=== PATIENT | female | born 1970 | race Caucasian/White ===

== ENCOUNTER → 2016-07-07 | Outpatient (CLI) | payer BC ==
--- NOTE | 2016-07-07 14:08 | US ---
EXAMINATION TYPE: US abdomen complete DATE OF EXAM: 07/07/2016 1:51 PM COMPARISON: US in PACS CLINICAL HISTORY: Gen Abd Pain R10.84. Pt states ABD pain EXAM MEASUREMENTS: Liver Length: 18.5 cm Gallbladder Wall: 0.3 cm CBD: 0.6 cm Spleen: 11.8 cm Right Kidney: 10.0 x 3.8 x 4.6 cm Left Kidney: 9.7 x 4.7 x 4.5 cm TECHNOLOGIST IMPRESSION: Pancreas: wnl, tail obscured by overlying bowel gas Liver: Enlarged, heterogeneous, difficult to penetrate/ Cyst left medial lobe=2.2 x 2.0 x 2.0 cm, un changed from previous Gallbladder: Possible small amount of sludge at dependent portion as seen on previous/ Fold at fundu s Evidence for sonographic Chacko's sign: No CBD: wnl Spleen: wnl Right Kidney: wnl Left Kidney: wnl Upper IVC: wnl Abd Aorta: wnl IMPRESSION: 1. Small amount of sludge may be present within the gallbladder. 2. Fatty infiltration liver. A cyst is within the left lobe, stable.
== END | disposition home or self-care (01) ==
LOC: RADUSWWP 13:27
PROVIDERS: ATTEND Internal Medicine Geriatric Medicine
DX: K76.89 Other specified diseases of liver (principal); K76.0 Fatty (change of) liver, not elsewhere classified
CPT/HCPCS: 76700

== ENCOUNTER 2016-07-16 09:10 | Day surgery (SDC) | payer BC ==
[2016-07-13 12:35] VITALS: BMI 30.7
[~2016-07-16 09:10] MED LIST: LACTATED RINGERS 1,000 ML IV SCH
[2016-07-16 09:33] VITALS: TEMP 98.1
[2016-07-16] MEDS ORDERED: ONDANSETRON 4 MG/2 ML VIAL IVP ONE (09:41)
[2016-07-16] MEDS ORDERED: PROPOFOL 10 MG/ML 20 ML VIAL IV ONE (09:56)
--- NOTE | 2016-07-16 10:15 | P.PCN ---
Date of Procedure: 07/16/16 Procedure(s) Performed: Brief history: Patient is a pleasant 45-year-old white female, scheduled for an elective upper endoscopy as well as colonoscopy as a part of evaluation of intermittent dysphagia to solids and change in bowel habits. She also has long-standing history of GERD and has been on Prilosec 20 mg daily for several years. She has been having diarrhea with bowel movements anywhere from 10-12 day which are loose to watery in consistency but no blood or mucus in the stool. Procedure performed: Esophagogastroduodenoscopy with biopsy Colonoscopy with biopsy Preoperative diagnosis: Dysphagia/GERD Change in bowel habits and chronic diarrhea for months duration Anesthesia: MAC Procedure: After informed consent was obtained from the patient was brought into the endoscopy unit and IV conscious sedation was administered by anesthesia under continuous monitoring. Initially upper endoscopy was done. The Olympus GF 160 video endoscope was inserted inserted into the mouth and esophagus intubated without any difficulty and was gradually advanced into the stomach and duodenum and carefully examined. The bulb and second part of the duodenum appeared normal. Biopsies were done from this area to rule out celiac disease. The scope was then withdrawn into the stomach adequately insufflated with air and upon careful examination the antrum had mild gastritis and biopsies were done from this area. The body, cardia and fundus appeared normal. The scope was then withdrawn into the esophagus. The GE junction was located at 40 cm to the incisors. It appeared regular with no erythema erosions or ulcerations. Rest of the esophagus appeared normal. Patient tolerated the procedure well. At this time the patient continued to remain sedation. Initial digital rectal examination was normal. Olympus CF 160 video colonoscope was then inserted into the rectum and gradually advanced to the cecum without any difficulty. Careful examination was performed as the scope was gradually being withdrawn. The prep was excellent. terminal ileum was intubated and 20 cm visualized and appeared normal. The cecum, ascending colon, transverse colon, descending colon , sigmoid colon and rectum appeared normal. random biopsies were done from ascending and descending colon to rule out microscopic/collagenous colitis. Retroflexion was performed in the rectum and no lesions were noted. Patient tolerated the procedure well. Impression: 1. Upper endoscopy revealed mild antral gastritis but no evidence of esophagitis or peptic ulcer disease 2. Colonoscopy revealed normal-appearing colon from rectum to cecum with no evidence of colitis or colorectal neoplasia. Recommendations: Findings of this examination were discussed with the patient as well as[her family. She was advised to follow with the biopsy results. She can have a repeat colonoscopy in 10 years.
[2016-07-16 10:50] VITALS: BP 123/81; PULSE 72; RESP 18
== END 2016-07-16 11:04 | disposition home or self-care (01) ==
LOC: ORWHC2ENDO 09:10
PROVIDERS: ATTEND Internal Medicine Gastroenterology
DX: K21.9 Gastro-esophageal reflux disease without esophagitis (principal); K29.50 Unspecified chronic gastritis without bleeding; F41.9 Anxiety disorder, unspecified; Z79.899 Other long term (current) drug therapy; Z88.0 Allergy status to penicillin; Z88.2 Allergy status to sulfonamides
CPT/HCPCS: 88305; 88342; 45380; 43239; J2405; J2704

== ENCOUNTER → 2017-03-09 | Outpatient (CLI) | payer BC ==
--- NOTE | 2017-03-09 16:05 | BD ---
EXAMINATION TYPE: MG DEXA axial skeleton. DATE OF EXAM: 03/09/2017 COMPARISON: NONE CLINICAL HISTORY: Postmenopausal female. Screening. Height: 5'5 Weight: 200 FRAX RISK QUESTIONS: Alcohol (3 or more units per day): no Family History (Parent hip fracture): no Glucocorticoids (More than 3mos): no (Ex: prednisone, prednisolone, methylprednisolone, dexamethasone, and hydrocortisone). History of Fracture in Adulthood: no Secondary Osteoporosis: 1. Type 1 Diabetes: no 2. Hyperthyroidism: no 3. Menopause before 45: yes 4. Malnutrition: no 5. Chronic liver disease: no Rheumatoid Arthritis: no Current Tobacco Use: no RISK FACTORS HISTORY OF: Family History of Osteoporosis: Active: Diet low in dairy products/other sources of calcium: Postmenopausal woman: MEDICATIONS: Additional Medications: anxiety, Additional History: EXAM MEASUREMENTS: Bone mineral densitometry was performed using the [employer] System. Bone mineral density as measured about the Lumbar spine is: ----- L1-L4(G/cm2): 1.343 T Score Values are as follows: ----- L2: 1.1 ----- L3: 1.6 ----- L4: 1.4 ----- L1-L4:1.4 Bone mineral density about the R hip (g/cm2): 1.137 Bone mineral density about the L hip (g/cm2): 1.149 T Score values are as follows: -----R Neck: 0.7 -----L Neck: 0.8 -----R Total: 0.9 -----L Total: 1.0 IMPRESSION: Normal (Values between +1 and -1 indicate normal bone mass). Consider repeating this study in 5 year s or sooner if there is some new clinical indication. NOTE: T-SCORE=SD OF THE YOUNG ADULT MEAN.
--- NOTE | 2017-03-10 09:09 | MM ---
Reason for exam: screening (asymptomatic). Last mammogram was performed 2 years and 4 months ago. History: Patient is postmenopausal and is nulliparous. Family history of breast cancer in grandmother. Took hormonal contraceptives for 10 years. Physical Findings: A clinical breast exam by your physician is recommended on an annual basis and results should be correlated with mammographic findings. MG Screening Mammo w CAD Bilateral CC and MLO view(s) were taken. Prior study comparison: November 07, 2014, bilateral MG screening mammo w CAD. October 16, 2013, bilateral MG screening mammo w CAD. There are scattered fibroglandular densities. Developing asymmetry anterior upper outer quadrant in the left breast. Focal asymmetry left posterior middle central aspect on MLO view. This finding is changed when compared with previous exams. ASSESSMENT: Incomplete: need additional imaging evaluation, BI-RAD 0 RECOMMENDATION: Special view mammogram of the left breast. If lesion persists on supplemental views, image directed ultrasound is recommended. [facility] will attempt to contact patient to return for supplemental views and ultrasound if indicated.
== END | disposition home or self-care (01) ==
LOC: RADMAMWWP 14:25
PROVIDERS: ATTEND Obstetrics & Gynecology
DX: Z12.31 Encounter for screening mammogram for malignant neoplasm of breast (principal); Z78.0 Asymptomatic menopausal state
CPT/HCPCS: 77080; G0202

== ENCOUNTER → 2017-03-15 | Outpatient (CLI) | payer BC ==
--- NOTE | 2017-03-15 09:50 | MM ---
Reason for exam: additional evaluation requested from abnormal screening. Last mammogram was performed less than 1 month ago. History: Patient is postmenopausal and is nulliparous. Family history of breast cancer in grandmother. Took hormonal contraceptives for 10 years. Physical Findings: Nurse did not find any significant physical abnormalities on exam. MG Work Up Mamm w CAD LT Spot compression CC, spot compression MLO, and ML view(s) were taken of the left breast. Prior study comparison: March 09, 2017, bilateral MG screening mammo w CAD. November 07, 2014, bilateral MG screening mammo w CAD. Area does not completely go away. These results were verbally communicated with the patient and result sheet given to the patient on 03/15/17. ASSESSMENT: Incomplete: need additional imaging evaluation, BI-RAD 0 RECOMMENDATION: Ultrasound of the left breast.
--- NOTE | 2017-03-15 09:54 | USB ---
Reason for exam: additional evaluation requested from abnormal screening. History: Patient is postmenopausal and is nulliparous. Family history of breast cancer in grandmother. Took hormonal contraceptives for 10 years. US Breast Workup Limited LT Left breast ultrasound demonstrates a 0.4 x 0.3 x 0.4cm oval lesion too small to characterize at 1 o'clock, a 0.7 x 0.6 x 0.6cm irregular, hypoechoic, vascular lesion at 2 o'clock, 6cm from nipple, which biopsy advised, believed to correspond to mammographic area, a 0.8 x 0.4 x 0.8cm oblong, lobular, cystic lesion at 4 o'clock and a 0.8 x 0.6 x 0.7cm cluster at 4 o'clock. These results were verbally communicated with the patient and result sheet given to the patient on 03/15/17. ASSESSMENT: Suspicious, BI-RAD 4 RECOMMENDATION: Ultrasound core biopsy of the left breast. Called Dr. Alston with mammographic findings and has scheduled an appointment for the patient for 04/07/17 at 10:[address] Desai. Biopsy scheduled for 03/18/17 at 11:30. PRELIMINARY REPORT CALLED AND FAXED TO DR. DESAI ON 03/15/17.
== END | disposition home or self-care (01) ==
LOC: RADMAMWWP 07:31
PROVIDERS: ATTEND Obstetrics & Gynecology
DX: R92.8 Other abnormal and inconclusive findings on diagnostic imaging of breast (principal); Z80.3 Family history of malignant neoplasm of breast
CPT/HCPCS: 76642; G0206

== ENCOUNTER → 2017-03-18 | Day surgery (SDC) | payer BC ==
[2017-03-18 10:45] VITALS: BMI 33.3
--- NOTE | 2017-03-18 13:06 | USB ---
ULTRASOUND GUIDED CORE BIOPSY LEFT BREAST BIOPSY: CLINICAL HISTORY: Abnormal ultrasound and mammogram FINDINGS: The procedure was explained to the patient. The risks, complications, benefits and alternatives were discussed and any questions were answered. Informed consent was obtained. Patient was placed supin e on the ultrasound table and prepped and draped in the usual sterile fashion. Utilizing a 14 gauge needle, 3 passes were made into the requested lesion. Patient was stable throughout the procedure. Pathology is pending. All elements of maximal barrier and sterile technique were utilized. Surgical clip was placed and the mammogram demonstrated the area of concern to be in the region of the clip. IMPRESSION: 1. Successful ultrasound guided core biopsy left breast. Pathology pending. If the pathology is disc ordant with the radiology than a stereotactic core biopsy or needle localization would be recommended .
--- NOTE | 2017-03-18 13:58 | MM ---
Reason for exam: additional evaluation requested from abnormal screening. Last mammogram was performed less than 1 month ago. History: Patient is postmenopausal and is nulliparous. Family history of breast cancer in grandmother. Took hormonal contraceptives for 10 years. MG Diagnostic Mammo LT Wo CAD CC and ML view(s) were taken of the left breast. Prior study comparison: March 15, 2017, left breast MG work up mamm w CAD LT. March 09, 2017, bilateral MG screening mammo w CAD. ASSESSMENT: Post procedure mammogram for marker placement RECOMMENDATION: Ultrasound of the left breast in 6 months. PENDING PATHOLOGY RESULTS.
[2017-03-18 16:04] VITALS: BP 142/74; PULSE 74; RESP 16; TEMP 98
== END ==
LOC: RADUSWWP 10:27
PROVIDERS: ATTEND Surgery
DX: N60.32 Fibrosclerosis of left breast (principal); N60.22 Fibroadenosis of left breast; R92.8 Other abnormal and inconclusive findings on diagnostic imaging of breast
CPT/HCPCS: 88305; 19083; G0206; A4648; J2001

== ENCOUNTER → 2017-10-07 | Outpatient (CLI) | payer BC ==
--- NOTE | 2017-10-10 09:11 | MM ---
Reason for exam: follow-up at short interval from prior study. Last mammogram was performed 7 months ago. History: Patient is postmenopausal and is nulliparous. Family history of breast cancer in grandmother. Benign US breast needle core LT of the left breast, March 18, 2017. Took hormonal contraceptives for 10 years. Physical Findings: Nurse Summary: 1cm nodule in the left breast at 12 o'clock and 3 o'clock (nurse dw). MG Diagnostic Mammo LT w CAD CC and MLO view(s) were taken of the left breast. Prior study comparison: March 18, 2017, left breast MG diagnostic mammo LT wo CAD. March 15, 2017, left breast MG work up mamm w CAD LT. The breast tissue is heterogeneously dense. This may lower the sensitivity of mammography. There are benign appearing round, oval, circumscribed masses corresponding to sonographic cysts. Left biopsy marker noted. These results were verbally communicated with the patient and result sheet given to the patient on 10/07/17. ASSESSMENT: Benign, BI-RAD 2 RECOMMENDATION: Return to routine screening mammogram schedule for both breasts. Back on schedule for March 2018.
--- NOTE | 2017-10-10 09:13 | USB ---
Reason for exam: follow-up at short interval from prior study. History: Patient is postmenopausal and is nulliparous. Family history of breast cancer in grandmother. Benign US breast needle core LT of the left breast, March 18, 2017. Took hormonal contraceptives for 10 years. US Breast LT Left complete breast ultrasound includes all four quadrants, the retroareolar region and axilla. Finding demonstrates a 0.3 x 0.4 x 0.3cm hypoechoic lesion at 1 o'clock, likely complicated cyst, increased through transmission, 4 x 3 x 4mm on prior, a 0.4 x 0.4 x 0.3cm cystic lesion at 3 o'clock, 4 x 3cm on prior, a 1.0 x 1.1 x 0.5cm oval, vascular lesion at 3 o'clock and a 0.7 x 0.4 x 0.3cm cystic, benign lesion at 5 o'clock. These results were verbally communicated with the patient and result sheet given to the patient on 10/07/17. ASSESSMENT: Benign, BI-RAD 2 RECOMMENDATION: Return to routine screening mammogram schedule for both breasts. Back on schedule for March 2018.
== END | disposition home or self-care (01) ==
LOC: RADMAMWWP 09:23
PROVIDERS: ATTEND Surgery
DX: R92.8 Other abnormal and inconclusive findings on diagnostic imaging of breast (principal)
CPT/HCPCS: 77065

== ENCOUNTER → 2018-07-31 | Outpatient (CLI) | payer BC ==
--- NOTE | 2018-08-02 09:04 | MM ---
Reason for exam: screening (asymptomatic). Last mammogram was performed 10 months ago. History: Patient is postmenopausal and is nulliparous. Family history of breast cancer in grandmother. Benign US breast needle core LT of the left breast, March 18, 2017. Took hormonal contraceptives for 10 years. Physical Findings: A clinical breast exam by your physician is recommended on an annual basis and results should be correlated with mammographic findings. MG 3D Screening Mammo W/Cad Bilateral CC and MLO view(s) were taken. Prior study comparison: October 07, 2017, left breast MG diagnostic mammo LT w CAD. March 18, 2017, left breast MG diagnostic mammo LT wo CAD. The breast tissue is heterogeneously dense. This may lower the sensitivity of mammography. Previous mammotome biopsy in the left breast. There is chronic nodularity in the left breast laterally. No significant changes when compared with prior studies. ASSESSMENT: Benign, BI-RAD 2 RECOMMENDATION: Routine screening mammogram of both breasts in 1 year.
== END | disposition home or self-care (01) ==
LOC: RADMAMWWP 10:28
PROVIDERS: ATTEND Internal Medicine Geriatric Medicine
DX: Z12.31 Encounter for screening mammogram for malignant neoplasm of breast (principal)
CPT/HCPCS: 77063; 77067

== ENCOUNTER → 2018-11-03 | Outpatient (CLI) | payer BC ==
--- NOTE | 2018-11-03 14:30 | US ---
EXAMINATION TYPE: US kidneys/renal and bladder DATE OF EXAM: 11/03/2018 COMPARISON: US abd complete CLINICAL HISTORY: Abn kidney function R94.4. EXAM MEASUREMENTS: Right Kidney: 10.2 x 3.5 x 3.9 cm Left Kidney: 9.9 x 5.5 x 6.3 cm Right kidney is hard to see due to body habitus and bowel gas. Right Kidney: No hydronephrosis or masses seen Left Kidney: No hydronephrosis or masses seen Bladder: wnl Bilateral Jets seen: Yes There is no evidence for hydronephrosis at this point in time. No nephrolithiasis is seen. No jessica s are identified. The urinary bladder is anechoic. Bilateral ureteral jets are seen. IMPRESSION: No definite abnormality seen at this time.
== END ==
LOC: RADUSWWP 13:34
PROVIDERS: ATTEND Internal Medicine Geriatric Medicine
DX: R94.4 Abnormal results of kidney function studies (principal)
CPT/HCPCS: 76770

== ENCOUNTER → 2020-02-21 | Outpatient (CLI) | payer BC ==
--- NOTE | 2020-02-25 12:05 | MM ---
Reason for exam: screening (asymptomatic). Last mammogram was performed 1 year and 7 months ago. History: Patient is postmenopausal and is nulliparous. Family history of breast cancer in grandmother. Benign US breast needle core LT of the left breast, March 18, 2017. Took hormonal contraceptives for 10 years. Physical Findings: A clinical breast exam by your physician is recommended on an annual basis and results should be correlated with mammographic findings. MG 3D Screening Mammo W/Cad Bilateral CC and MLO view(s) were taken. Prior study comparison: July 31, 2018, bilateral MG 3d screening mammo w/cad. October 07, 2017, left breast MG diagnostic mammo LT w CAD. There are scattered fibroglandular densities. No significant changes when compared with prior studies. ASSESSMENT: Benign, BI-RAD 2 RECOMMENDATION: Routine screening mammogram of both breasts in 1 year.
== END | disposition home or self-care (01) ==
LOC: RADMAMWWP 13:59
PROVIDERS: ATTEND Internal Medicine Geriatric Medicine
DX: Z12.31 Encounter for screening mammogram for malignant neoplasm of breast (principal)
CPT/HCPCS: 77063; 77067

== ENCOUNTER → 2020-11-10 | Outpatient (CLI) | payer BC ==
[2020-11-10 15:30] LABS: Hepatitis A Antibody IgM Non-Reactive (Non-Reactive); Hepatitis B Core IgM Non-Reactive (Non-Reactive); Hepatitis B Surface Antigen Non-Reactive (Non-Reactive); Hepatitis C IgG Antibody Non-Reactive (Non-Reactive)
== END | disposition home or self-care (01) ==
LOC: LABWHC1 08:41
PROVIDERS: ATTEND Otolaryngology
DX: L43.9 Lichen planus, unspecified (principal); R53.83 Other fatigue
CPT/HCPCS: 36415; 80074

== ENCOUNTER → 2021-09-30 | Outpatient (CLI) | payer BC ==
--- NOTE | 2021-10-01 07:10 | BD ---
EXAMINATION TYPE: Axial Bone Density DATE OF EXAM: 09/30/2021 COMPARISON: 03/09/2017 CLINICAL HISTORY: 51 years year old Female. ICD-10 CODE: M81.0 Osteoporosis Height: 64 IN Weight: 215 LBS FRAX RISK QUESTIONS: Family History (Parent hip fracture): YES MOTHER Secondary Osteoporosis: 3. Menopause before 45: YES AGE 39 RISK FACTORS HISTORY OF: Family History of Osteoporosis: YES MOTHER Active: YES Postmenopausal woman: AGE 39 MEDICATIONS: Additional Medications: VIT D, PLAQUINAL, GOUT MED, FOLIC ACID,DOXYCYCLINE EXAM MEASUREMENTS: Bone mineral densitometry was performed using the [employer] System. Bone mineral density as measured about the Lumbar spine is: ----- L1-L4(G/cm2): 1.393 T Score Values are as follows: ----- L1: 1.4 ----- L2: 1.6 ----- L3: 2.1 ----- L4: 1.8 ----- L1-L4: 1.8 Bone mineral density has: Increased 4.0% since study of: 03/09/2017 Bone mineral density about the R hip (g/cm2): 1.177 Bone mineral density about the L hip (g/cm2): 1.180 T Score values are as follows: -----R Neck: 1.0 -----L Neck: 1.0 -----R Total: 1.2 -----L Total: 1.4 Bone mineral density has: Increased 4.4% since study of: 03/09/2017 FRAX%s: The graph provided illustrates a 6.2 chance for a major osteoporotic fx and a 0.0 chance for the hips probability for fx in 10 years time. IMPRESSION: Normal (Values between +1 and -1 indicate normal bone mass). Consider repeating this study in 5 year s or sooner if there is some new clinical indication. NOTE: T-SCORE=SD OF THE YOUNG ADULT MEAN.
--- NOTE | 2021-10-01 19:18 | MM ---
Reason for Exam: Screening (asymptomatic). Last mammogram was performed 1 year(s) and 8 month(s) ago. Patient History: Menarche at age 13. Patient has no children. Postmenopausal. Patient used Hormonal Contraceptives for 10 years. 03/18/2017, Benign Core Biopsy on the left side. Maternal grandmother had breast cancer. Risk Values: Kiara 5 year model risk: 1.3%. NCI Lifetime model risk: 11.6%. Prior Study Comparison: 10/07/2017 Left Diagnostic Mammogram, [facility]. 07/31/2018 Bilateral Screening Mammogram, [facility]. 02/21/2020 Bilateral Screening Mammogram, [facility]. Tissue Density: There are scattered fibroglandular densities. Findings: Analyzed By CAD. Microclip upper outer quadrant left breast from prior biopsy. There is nodularity in the central and lateral aspect of the left breast which appears more defined. However, evaluation of the previous 3-D images suggest that this nodularity was present previously as well. Precautions. Six-month follow-up is recommended. Otherwise, no significant change. Overall Assessment: Probably benign, BI-RAD 3 Management: Diagnostic Mammogram of the left breast in 6 months. Six-month follow-up diagnostic left breast mammogram to reassess nodularity which is better seen on previous 3-D images. Patient should continue monthly self breast exams. This exam should not preclude additional follow-up of suspicious palpable abnormalities. Electronically signed and approved by: Kan Samano M.D. Radiologist
== END | disposition home or self-care (01) ==
LOC: RADMAMWWP 15:46
PROVIDERS: ATTEND Internal Medicine Geriatric Medicine
DX: Z12.31 Encounter for screening mammogram for malignant neoplasm of breast (principal); Z78.0 Asymptomatic menopausal state; Z80.3 Family history of malignant neoplasm of breast
CPT/HCPCS: 77063; 77067; 77080

== ENCOUNTER → 2022-04-07 | Outpatient (CLI) | payer BC ==
--- NOTE | 2022-04-07 09:36 | MM ---
Reason for Exam: Follow-up at short interval from prior study. Last screening mammogram was performed 6 month(s) ago. Patient History: Menarche at age 13. Patient has no children. Postmenopausal. Patient used Hormonal Contraceptives for 10 years. 03/18/2017, Benign Core Biopsy on the left side. Maternal grandmother had breast cancer, age 70. Risk Values: Kiara 5 year model risk: 1.3%. NCI Lifetime model risk: 11.6%. Prior Study Comparison: 07/31/2018 Bilateral Screening Mammogram, [facility]. 02/21/2020 Bilateral Screening Mammogram, [facility]. 09/30/2021 Bilateral MG 3D screening mammo w/cad, [facility]. Tissue Density: Left: The breast tissue is heterogeneously dense. This may lower the sensitivity of mammography. Findings: Analyzed By CAD. Stable appearance of left breast tissue densities. No new suspicious masses or secretions or distortions. Left breast biopsy clip. Overall Assessment: Benign, BI-RAD 2 Management: Screening Mammogram of both breasts in 1 year. A clinical breast exam by your physician is recommended on an annual basis and results should be correlated with mammographic findings. This exam should not preclude additional follow-up of suspicious palpable abnormalities. Results were given to the patient verbally at the time of exam. Electronically signed and approved by: Vaughn Dickinson DO
== END | disposition home or self-care (01) ==
LOC: RADMAMWWP 08:50
PROVIDERS: ATTEND Obstetrics & Gynecology
DX: R92.8 Other abnormal and inconclusive findings on diagnostic imaging of breast (principal); Z78.0 Asymptomatic menopausal state; Z80.3 Family history of malignant neoplasm of breast; Z98.890 Other specified postprocedural states
CPT/HCPCS: 77061; 77065

== ENCOUNTER → 2022-11-12 | Outpatient (CLI) | payer BC ==
--- NOTE | 2022-11-15 08:53 | MM ---
Reason for Exam: Screening (asymptomatic). Last mammogram was performed 1 year(s) and 1 month(s) ago. Patient History: Menarche at age 13. Patient has no children. Postmenopausal. Patient used Hormonal Contraceptives for 10 years. 03/18/2017, Benign Core Biopsy on the left side. Maternal grandmother had breast cancer, age 70. Risk Values: Kiraa 5 year model risk: 1.3%. NCI Lifetime model risk: 11.4%. Prior Study Comparison: 02/21/2020 Bilateral Screening Mammogram, [facility]. 09/30/2021 Bilateral MG 3D screening mammo w/cad, [facility]. 04/07/2022 Left MG 3D diag mammo w/cad , [facility]. Tissue Density: The breast tissue is heterogeneously dense. This may lower the sensitivity of mammography. Findings: Analyzed By CAD. Left breast biopsy clip. There is no suspicious group of microcalcifications or new suspicious mass in either breast. Overall Assessment: Negative, BI-RAD 1 Management: Screening Mammogram of both breasts in [address] [facility] will attempt to contact patient to return for supplemental views and ultrasound if indicated. Patient should continue monthly self-breast exams. A clinical breast exam by your physician is recommended on an annual basis. This exam should not preclude additional follow-up of suspicious palpable abnormalities. Note on Kiara scores and lifetime risk: 1. A Kiara score greater than 3% is considered moderate risk. If this is the case, consider specialist referral to assess eligibility for a risk reducing agent. 2. If overall lifetime risk for the development of breast cancer is 20% or higher, the patient may qualify for future screening with alternating mammogram and breast MRI. Electronically signed and approved by: Vaughn Dickinson DO
== END | disposition home or self-care (01) ==
LOC: RADMAMWWP 07:43
PROVIDERS: ATTEND Internal Medicine Geriatric Medicine
DX: Z12.31 Encounter for screening mammogram for malignant neoplasm of breast (principal); Z78.0 Asymptomatic menopausal state; Z80.3 Family history of malignant neoplasm of breast
CPT/HCPCS: 77063; 77067

== ENCOUNTER → 2024-03-01 | Outpatient (CLI) | payer BC ==
--- NOTE | 2024-03-01 11:56 | MM ---
Reason for Exam: Screening (asymptomatic). Last mammogram was performed 1 year(s) and 3 month(s) ago. Patient History: Menarche at age 13. Patient has no children. Postmenopausal. Patient used Hormonal Contraceptives for 10 years. 03/18/2017, Benign Core Biopsy on the left side. Maternal grandmother had breast cancer, age 70. Risk Values: Kiara 5 year model risk: 1.4%. NCI Lifetime model risk: 11.2%. Prior Study Comparison: 09/30/2021 Bilateral MG 3D screening mammo w/cad, [facility]. 04/07/2022 Left MG 3D diag mammo w/cad , [facility]. 11/12/2022 Bilateral MG 3D screening mammo w/cad, [facility]. Tissue Density: The breasts are heterogeneously dense, which may obscure small masses. Findings: Analyzed By CAD. Left breast biopsy clip. Right breast: There is no suspicious group of microcalcifications or new suspicious mass. Left breast: There is no suspicious group of microcalcifications or new suspicious mass. Overall Assessment: Benign, BI-RAD 2 Management: Screening Mammogram of both breasts in [address] [facility] will attempt to contact patient to return for supplemental views and ultrasound if indicated. Patient should continue monthly self-breast exams. A clinical breast exam by your physician is recommended on an annual basis. This exam should not preclude additional follow-up of suspicious palpable abnormalities. Note on Kiara scores and lifetime risk: 1. A Kiara score greater than 3% is considered moderate risk. If this is the case, consider specialist referral to assess eligibility for a risk reducing agent. 2. If overall lifetime risk for the development of breast cancer is 20% or higher, the patient may qualify for future screening with alternating mammogram and breast MRI. [facility], , 03/01/2024 11:53 AM. Electronically signed and approved by: Vaughn Dickinson DO
== END | disposition home or self-care (01) ==
LOC: RADMAMWWP 11:19
PROVIDERS: ATTEND Internal Medicine Geriatric Medicine
CPT/HCPCS: 77063; 77067

== ENCOUNTER → 2024-06-27 | Outpatient (CLI) | payer OTHER ==
--- NOTE | 2024-06-27 23:39 | US ---
EXAMINATION TYPE: US kidneys/renal and bladder DATE OF EXAM: 06/27/2024 COMPARISON: NONE CLINICAL INDICATION: Female, 53 years old with history of R319 HEMATURIA; Hematuria TECHNIQUE: Grayscale imaging of the bilateral kidneys and urinary bladder: FINDINGS: EXAM MEASUREMENTS: Right Kidney: 10.7 x 3.6 x 3.6 cm Left Kidney: 9.4 x 4.4 x 4.4 cm Urinary bladder is sonolucent. The posterior wall is normal. Right Kidney: no evidence of hydronephrosis Left Kidney: no evidence of hydronephrosis Bladder: appears wnl Bilateral Jets seen: yes IMPRESSION: 1. Normal renal ultrasound [facility], , 06/27/2024 11:37 PM
--- NOTE | 2024-06-27 23:40 | US ---
EXAMINATION TYPE: US groin LT DATE OF EXAM: 06/27/2024 COMPARISON: NONE CLINICAL INDICATION: Female, 53 years old with history of R591 LYMPHADENOPATHY; Lymph nodes left groi n TECHNIQUE: FINDINGS: Multiple lymph nodes left groin, largest = 1.1 x 0.7 x 1.7cm IMPRESSION: Left inguinal adenopathy without thickened cortex. [facility] Arlene Najera, , 06/27/2024 11:38 PM
== END | disposition home or self-care (01) ==
LOC: RADUSWWP 14:47
PROVIDERS: ATTEND Internal Medicine Geriatric Medicine
DX: R51.9 Headache, unspecified (principal); R31.9 Hematuria, unspecified; R59.0 Localized enlarged lymph nodes
CPT/HCPCS: 76770